=== PATIENT | female | born 1960 | race African-American/Black ===

== ENCOUNTER → 2023-08-24 | Day surgery (SDC) | payer OTHER ==
[~2023-08-24] MED LIST: DEXAMETHASONE SOD PHOSPHATE 4 MG/1 ML VIAL ONE; LIDOCAINE HCL/PF 2% SDV 5ML VIAL ONE; MIDAZOLAM HCL 2 MG/2 ML SINGLE DOSE VIAL ONE; ONDANSETRON 4 MG/2 ML VIAL ONE; PROPOFOL 20 ML ONE; ceFAZolin SODIUM 1 GM VIAL ONE
== END | disposition home or self-care (01) ==
LOC: JRADUS-SUR 11:26
PROVIDERS: ATTEND Surgery
PROC: BH00ZZZ Plain Radiography of Right Breast (ICD-10-PCS; principal; 2023-08-24)
DX: D24.1 Benign neoplasm of right breast (principal)
CPT/HCPCS: 19281; A4648

== ENCOUNTER 2023-08-26 04:13 | Day surgery (SDC) | payer OTHER ==
[2023-08-21 12:40] VITALS: BMI 43.9
[2023-08-26] MEDS ORDERED: LIDOCAINE HCL 1%, 10 MG/ML (20ML VIAL) ONE (12:00)
[2023-08-26] MEDS ORDERED: PROMETHAZINE HCL 25 MG/1 ML VIAL IVPB PRN (12:00)
[2023-08-26] MEDS ORDERED: ACETAMINOPHEN INJECTION 100 ML IVPB ONE (12:00)
[2023-08-26] MEDS ORDERED: ONDANSETRON 4 MG/2 ML VIAL IVPUSH PRN (12:00)
[2023-08-26] MEDS ORDERED: oxyCODONE HCL 5 MG TABLET PO PRN (12:00)
[2023-08-26] MEDS ORDERED: LACTATED RINGERS SOLUTION 1,000 ML IV SCH (12:00)
[2023-08-26] MEDS: LIDOCAINE HCL 1%, 10 MG/ML (20ML VIAL) INF ONE ×2 (12:36)
[2023-08-26] MEDS: ceFAZolin SODIUM 1 GM VIAL IVPB ONE (13:36)
[2023-08-26 14:47] VITALS: RESP 20
[2023-08-26 15:40] VITALS: BP 125/73; PULSE 61; TEMP 97.1
== END 2023-08-26 15:38 | disposition home or self-care (01) ==
LOC: JASU-SURG 04:13
PROVIDERS: ATTEND Surgery
PROC: 0HBT0ZX Excision of Right Breast, Open Approach, Diagnostic (ICD-10-PCS; principal; 2023-08-26 11:30)
DX: N60.11 Diffuse cystic mastopathy of right breast (principal)
CPT/HCPCS: 76098-TC-FY; 88307-TC; 94760; J0131